=== PATIENT | female | born 1960 | race Caucasian/White ===

== ENCOUNTER → 2020-01-21 16:27 | Outpatient (CLI) | payer BC, SELFPAY ==
--- NOTE | 2020-01-21 16:28 | MM_ITS ---
PROCEDURE: MM DIG SCREENING MAMM BI W/CAD Digital Breast Tomosynthesis Included CLINICAL INDICATION: screening xmg There is a history of breast cancer in the patient's sister diagnosed after menopause COMPARISON: MG BR-ALINE SCRN ELOY from 01/22/2013 MG DMSB DIG MAMM-SCREEN ELOY W/CAD from 09/12/2016 MG MM scrn mammo channing BI from 12/05/2018 outside films TECHNIQUE: Standard CC and MLO images and 3D Tomosynthesis was obtained. R2 CAD reviewed. FINDINGS: Moderate diffuse fibroglandular densities are seen in both breast and the findings are bilateral and symmetrical. There is a benign-appearing microcalcification in each breast. There are no CAD markings. There is no suspicious lesion and no suspicious microcalcifications. IMPRESSION: Moderate breast density with no suspicious lesions seen BI-RAD Category: 2 Benign Finding(s) FOLLOW-UP: 1YR 1 Year Follow-up (A letter has been sent to the patient regarding results of the study.) Dictated by: Dr. Petey Curry MD 01/29/2020 09:35 Dr. Petey Curry MD in [place] 01/29/2020 09:35
== END ==
PROVIDERS: PCP Internal Medicine Adolescent Medicine; Visit Provider Nurse Practitioner Obstetrics & Gynecology
DX: Z12.31 Encounter for screening mammogram for malignant neoplasm of breast (principal)
CPT/HCPCS: 77063; 77067

== ENCOUNTER → 2020-08-04 13:54 | Outpatient (POV) | payer BC, SELFPAY | PROVIDERS: Visit Provider Dermatology | DX: Z00.00 Encounter for general adult medical examination without abnormal findings (principal) ==

== ENCOUNTER → 2021-02-12 10:01 | Outpatient (CLI) | payer BC, SELFPAY ==
[2021-02-12 10:34] LABS: Basophils # 0.1 K/mm3 (0-0.2); Basophils % 1.8 % (0.1-2.0); Eosinophils # 0.3 K/mm3 (0.0-0.4); Eosinophils % 4.4 % (0.1-12.0); Hematocrit 46.3 % (37.0-47.0); Hemoglobin 15.2 g/dL (12.2-16.2); Lymphocytes # 1.5 K/mm3 (0.7-4.5); Lymphocytes % 23.3 % (10-50); Mean Corpuscular HGB Conc 32.8 g/dL (31.8-35.4); Mean Corpuscular Hemoglobin 30.8 pg (27.0-31.2); Mean Corpuscular Volume 93.7 fl (81-99); Mean Platelet Volume 7.9 fl (7.4-10.4); Monocytes # 0.4 K/mm3 (0.1-1.0); Monocytes % 6.1 % (1.7-9.3); Neutrophils # 4.2 K/mm3 (1.8-7.8); Neutrophils % 64.3 % (37.0-80.0); Platelet Count 280 K/mm3 (142-424); Red Blood Count 4.95 M/mm3 (4.20-5.40); Red Cell Distribution Width 12.9 % (11.5-17.5); White Blood Count 6.5 K/mm3 (4.8-10.8)
[2021-02-12 12:15] LABS: Alanine Aminotransferase 31 U/L (12-78); Albumin Level 4.5 g/dl (3.5-5.0); Albumin/Globulin Ratio 1.7 (1.1-1.8); Alkaline Phosphatase 85 U/L (38-126); Anion Gap 11.1 mEq/L (5-15); Aspartate Amino Transferase 32 U/L (14-36); Bilirubin,Total 0.7 mg/dl (0.2-1.3); Blood Urea Nitrogen 13 mg/dl (7-17); Calcium 9.7 mg/dl (8.4-10.2); Carbon Dioxide 32 mmol/L (22.0-30.0); Chloride 100 mmol/L (98-107); Chol/HDL Ratio 2.1 (1-3.5); Cholesterol 194 mg/dl (140-200); Estimated Glomerular Filt Rate 85 ml/min (>60); GFR (African American) 103 ML/MIN (>60); Globulin 2.7 g/dL (1.3-3.2); Glucose 95 mg/dl (74-100); HDL Cholesterol 93 mg/dl (40-60); Potassium 4.1 mmoL/L (3.5-5.1); Sodium 139 mmol/L (136-145); Total Protein,Serum 7.2 g/dl (6.3-8.2); Triglycerides 71 mg/dl (30-150); VLDL Cholesterol 14 mg/dL (0-40)
[2021-02-12 12:16] LABS: Hemoglobin A1C 5.5 % (4.0-6.0)
[2021-02-12 12:26] LABS: Direct LDL Cholesterol 88.73 mg/dL (100-129)
[2021-02-12 12:34] LABS: 25-OH Vitamin D, Total 27.9 ng/mL (30-100)
[2021-02-12 12:46] LABS: Thyroid Stimulating Hormone 2.11 uIU/mL (0.465-4.68)
[2021-02-12 13:05] LABS: Vitamin B12 534 pg/mL (239-931)
== END ==
PROVIDERS: Visit Provider Nurse Practitioner Family
DX: Z00.00 Encounter for general adult medical examination without abnormal findings (principal); E03.9 Hypothyroidism, unspecified; Z86.32 Personal history of gestational diabetes; Z86.39 Personal history of other endocrine, nutritional and metabolic disease
CPT/HCPCS: 36415; 80053; 80061; 82306; 82607; 83036; 84443; 85025

== ENCOUNTER 2021-03-30 17:00 | Outpatient (RCR) | payer BC, SELFPAY | END 2021-03-30 17:05 | disposition home or self-care (01) | LOC: PT 17:00 | PROVIDERS: PCP Internal Medicine Adolescent Medicine; Visit Provider Orthopaedic Surgery Adult Reconstructive Orthopaedic Surgery | DX: M25.511 Pain in right shoulder (principal) | CPT/HCPCS: 20561; 97010; 97014; 97016; 97033; 97035; 97110; 97140; 97163; 97164; G0283 ==

== ENCOUNTER → 2021-04-13 17:06 | Outpatient (CLI) | payer BC, SELFPAY ==
--- NOTE | 2021-04-13 17:07 | MM_ITS ---
PROCEDURE INFORMATION: Exam: MG Bilateral Screening 3D Mammography Exam date and time: 04/13/2021 5:07 PM Age: 60 years old Clinical indication: Encounter for screening mammogram for malignant neoplasm of breast; Additional info: Screening xmg. Family history of breast carcinoma. TECHNIQUE: Imaging protocol: Bilateral Screening tomosynthesis and 2D mammography including computer-aided detection (CAD) when performed. COMPARISON: 1. MG MM DIG SCREENING MAMM BI W/CAD 01/21/2020 4:40 PM 2. MG MM scrn mammo channing BI 12/05/2018 5:34 PM FINDINGS: MAMMOGRAPHY: Breast composition: The breasts are heterogeneously dense, which may obscure small masses. Mass: No suspicious masses. Architectural distortion: No suspicious distortion. Calcifications: No suspicious calcifications. Asymmetric density: None. Skin thickening: None. Axillary adenopathy: None. IMPRESSION: No mammographic evidence of malignancy. Annual screening is recommended unless otherwise clinically indicated. ASSESSMENT: BI-RADS Category 1: Negative
== END ==
PROVIDERS: PCP Internal Medicine Adolescent Medicine; Visit Provider Nurse Practitioner Obstetrics & Gynecology
DX: Z12.31 Encounter for screening mammogram for malignant neoplasm of breast (principal)
CPT/HCPCS: 77063; 77067

== ENCOUNTER 2021-05-11 16:00 | Outpatient (RCR) | payer BC, SELFPAY | END 2021-05-11 16:05 | disposition home or self-care (01) | LOC: PT 16:00 | PROVIDERS: PCP Internal Medicine Adolescent Medicine | DX: M79.672 Pain in left foot (principal); R60.0 Localized edema; Z98.890 Other specified postprocedural states | CPT/HCPCS: 97010; 97014; 97033; 97035; 97110; 97112; 97140; 97163; G0283 ==

== ENCOUNTER → 2022-07-25 23:54 | Outpatient (CLI) | payer BC, SELFPAY ==
[2022-07-25 16:41] LABS: Basophils % 0.5 % (0.1-2.0); Eosinophils # 0.3 K/mm3 (0.0-0.4); Eosinophils % 3.1 % (0.1-12.0); Hematocrit 45.1 % (37.0-47.0); Hemoglobin 14.2 g/dL (12.2-16.2); Lymphocytes # 1.2 K/mm3 (0.7-4.5); Lymphocytes % 13.9 % (10-50); Mean Corpuscular HGB Conc 31.6 g/dL (31.8-35.4); Mean Corpuscular Hemoglobin 29.3 pg (27.0-31.2); Mean Corpuscular Volume 92.8 fl (81-99); Mean Platelet Volume 9.1 fl (7.4-10.4); Monocytes # 0.6 K/mm3 (0.1-1.0); Monocytes % 7.3 % (1.7-9.3); Neutrophils # 6.5 K/mm3 (1.8-7.8); Neutrophils % 75.2 % (37.0-80.0); Platelet Count 219 K/mm3 (142-424); Red Blood Count 4.85 M/mm3 (4.20-5.40); Red Cell Distribution Width 12.9 % (11.5-17.5); White Blood Count 8.6 K/mm3 (4.8-10.8)
[2022-07-25 16:44] LABS: Anion Gap 12.1 mEq/L (5-15); Blood Urea Nitrogen 15 mg/dl (7-17); Calcium 8.8 mg/dl (8.4-10.2); Carbon Dioxide 31 mmol/L (22.0-30.0); Chloride 102 mmol/L (98-107); Estimated Glomerular Filt Rate 85 ml/min (>60); GFR (African American) 103 ML/MIN (>60); Glucose 96 mg/dl (74-100); Potassium 4.1 mmoL/L (3.5-5.1); Sodium 141 mmol/L (136-145)
[2022-07-25 17:15] LABS: Thyroid Stimulating Hormone 0.06 uIU/mL (0.465-4.68)
== END ==
PROVIDERS: PCP Family Medicine; Visit Provider Family Medicine
DX: Z00.00 Encounter for general adult medical examination without abnormal findings (principal); E03.9 Hypothyroidism, unspecified
CPT/HCPCS: 80048; 84443; 85025

== ENCOUNTER → 2022-08-31 08:20 | Outpatient (CLI) | payer BC, SELFPAY ==
--- NOTE | 2022-08-31 08:20 | XR_ITS ---
FINAL REPORT TECHNIQUE: Bone densitometry calculations of the lumbar spine and left hip were obtained. CLINICAL HISTORY: osteopenia FINDINGS: Using L1-4, the bone mineral density of the spine is 0.732 g/cm2, corresponding to T-score of -2.9 and a Z score of -1.3. This is within the range of osteoporosis. Using the left hip, the bone mineral density of the femoral neck is 0.585 g/cm2, corresponding to a T-score of -2.4 and a Z-score of -1.0. This is within the range of osteopenia. NOTE: T-score: Standard deviation compared with peak bone mass of young adult mean. *Following the recommendations of the International Society of Bone densitometry, classification of hip BMD is based on the lower of two T-scores; total hip or femoral neck. IMPRESSION: 1. Bone mineral density of the lumbar spine within the range of osteoporosis. 2. Bone mineral density of the left femoral neck within the range of osteopenia. FRAX data reports 11% major osteoporotic fracture and 1.9% hip fracture. Reviewed, Interpreted and Dictated by Edith Jewell MD Transcribed by Julia Gregg Authenticated and [facility]
--- NOTE | 2022-08-31 08:20 | MM_ITS ---
PROCEDURE INFORMATION: Exam: MG Bilateral Screening 3D Mammography Exam date and time: 08/31/2022 8:33 AM Age: 61 years old Clinical indication: Screening. Her sister had breast cancer at age 65. TECHNIQUE: Imaging protocol: Bilateral Screening tomosynthesis and 2D mammography including computer-aided detection (CAD) when performed. COMPARISON: 1. MG MM DIG SCREENING MAMM BI W/CAD 04/13/2021 5:04 PM 2. MG MM DIG SCREENING MAMM BI W/CAD 01/21/2020 4:40 PM 3. MG MM scrn mammo channing BI 12/05/2018 5:34 PM 4. MG DMSB DIG MAMM-SCREEN ELOY W/CAD 09/12/2016 5:11 PM FINDINGS: MAMMOGRAPHY: Breast composition: The breasts are heterogeneously dense, which may obscure small masses. Mass: No suspicious mass. Architectural distortion: None. Calcifications: No suspicious calcifications. Asymmetric density: None. Skin thickening: None. Axillary adenopathy: None. IMPRESSION: No mammographic evidence of malignancy. Annual screening is recommended unless otherwise clinically indicated. ASSESSMENT: BI-RADS Category 1: Negative
== END ==
PROVIDERS: PCP Family Medicine; Visit Provider Family Medicine
DX: Z12.31 Encounter for screening mammogram for malignant neoplasm of breast (principal); Z13.820 Encounter for screening for osteoporosis; Z78.0 Asymptomatic menopausal state
CPT/HCPCS: 77063; 77067; 77080

== ENCOUNTER 2023-08-21 16:43 | Outpatient (CLI) | payer BC, SELFPAY ==
[2023-08-21 17:14] LABS: Basophils # 0.1 K/mm3 (0-0.2); Basophils % 0.8 % (0.1-2.0); Eosinophils # 0.2 K/mm3 (0.0-0.4); Eosinophils % 2.8 % (0.1-12.0); Hematocrit 43.6 % (37.0-47.0); Hemoglobin 14.5 g/dL (12.2-16.2); Lymphocytes # 1.6 K/mm3 (0.7-4.5); Lymphocytes % 26.6 % (10-50); Mean Corpuscular HGB Conc 33.3 g/dL (31.8-35.4); Mean Corpuscular Hemoglobin 31.7 pg (27.0-31.2); Mean Corpuscular Volume 95.4 fl (81-99); Mean Platelet Volume 9.5 fl (7.4-10.4); Monocytes # 0.4 K/mm3 (0.1-1.0); Monocytes % 7.2 % (1.7-9.3); Neutrophils # 3.9 K/mm3 (1.8-7.8); Neutrophils % 62.6 % (37.0-80.0); Platelet Count 226 K/mm3 (142-424); Red Blood Count 4.57 M/mm3 (4.20-5.40); Red Cell Distribution Width 13.9 % (11.5-17.5); White Blood Count 6.1 K/mm3 (4.8-10.8)
[2023-08-21 17:47] LABS: Alanine Aminotransferase 18 U/L (12-78); Albumin Level 4.4 g/dl (3.5-5.0); Albumin/Globulin Ratio 1.8 (1.1-1.8); Alkaline Phosphatase 81 U/L (38-126); Anion Gap 7.7 mEq/L (5-15); Aspartate Amino Transferase 23 U/L (14-36); Bilirubin,Total 0.7 mg/dl (0.2-1.3); Blood Urea Nitrogen 17 mg/dl (7-17); Calcium 9.5 mg/dl (8.4-10.2); Carbon Dioxide 30 mmol/L (22.0-30.0); Chloride 107 mmol/L (98-107); Cholesterol 154 mg/dl (140-200); Estimated Glomerular Filt Rate 85 ml/min (>60); GFR (African American) 103 ML/MIN (>60); Globulin 2.5 g/dL (1.3-3.2); Glucose 83 mg/dl (74-100); HDL Cholesterol 77 mg/dl (40-60); Potassium 4.7 mmoL/L (3.5-5.1); Sodium 140 mmol/L (136-145); Total Protein,Serum 6.9 g/dl (6.3-8.2); Triglycerides 54 mg/dl (30-150); VLDL Cholesterol 11 mg/dL (0-40)
[2023-08-21 17:58] LABS: Direct LDL Cholesterol 58.07 mg/dL (100-129)
[2023-08-21 18:17] LABS: Thyroid Stimulating Hormone 3.94 uIU/mL (0.465-4.68)
[2023-08-21 18:40] LABS: Hemoglobin A1C 6.7 % (4.0-6.0)
== END 2023-08-21 23:59 | disposition home or self-care (01) ==
LOC: LAB.DROPOF 16:43
PROVIDERS: PCP Family Medicine; Visit Provider Family Medicine
DX: E03.9 Hypothyroidism, unspecified (principal)
CPT/HCPCS: 80050; 80053; 80061; 83036; 84443; 85025

== ENCOUNTER 2023-09-08 10:03 | Outpatient (CLI) | payer BC, SELFPAY ==
--- NOTE | 2023-09-08 10:08 | MM_ITS ---
PROCEDURE INFORMATION: Exam: MG Bilateral Screening 3D Mammography Exam date and time: 09/08/2023 9:54 AM Age: 62 years old Clinical indication: Screening examination TECHNIQUE: Imaging protocol: Bilateral Screening tomosynthesis and 2D mammography including computer-aided detection (CAD) when performed. COMPARISON: 1. MG MM DIG SCREENING MAMM BI W/CAD 08/31/2022 8:33 AM 2. MG MM DIG SCREENING MAMM BI W/CAD 04/13/2021 5:04 PM FINDINGS: MAMMOGRAPHY: Breast composition: The breasts are heterogeneously dense, which may obscure small masses. Mass: None. Architectural distortion: None. Calcifications: No suspicious calcifications. Asymmetric density: None. Skin thickening: None. Axillary adenopathy: None. IMPRESSION: No mammographic evidence of malignancy. Annual screening is recommended unless otherwise clinically indicated. ASSESSMENT: BI-RADS Category 1: Negative
== END 2023-09-08 23:59 | disposition home or self-care (01) ==
LOC: RAD 10:04
PROVIDERS: PCP Family Medicine; Visit Provider Obstetrics & Gynecology
DX: Z12.31 Encounter for screening mammogram for malignant neoplasm of breast (principal)
CPT/HCPCS: 77063; 77067

== ENCOUNTER 2023-12-19 11:15 | Outpatient (CLI) | payer BC, SELFPAY | END 2023-12-19 23:59 | disposition home or self-care (01) | LOC: LAB.DROPOF 12-20 10:19 | PROVIDERS: PCP Family Medicine; Visit Provider Family Medicine | DX: R35.0 Frequency of micturition (principal) | CPT/HCPCS: 87086 ==

== ENCOUNTER 2024-09-02 10:00 | Outpatient (CLI) | payer BC, SELFPAY ==
[2024-09-02 18:02] LABS: Thyroid Stimulating Hormone 2.32 uIU/mL (0.465-4.68)
[2024-09-02 18:21] LABS: Hepatitis C Ab Qual. W/ RFX NEGATIVE (Negative)
--- OUTSIDE RECORDS SUMMARY | 2024-09-03 12:29 | XMS_ITS ---
Author Organization Unknown Medications Medication Instructions Effective Dates (start - stop) Status chlorhexidine gluconate 1.2 MG/ML Mouthwash 5156-21-87N78:00:00.000+00:0 0 - Completed levothyroxine sodium 0.112 M G Oral Tablet [Euthyrox] 4099-66-73W40:00:00.000+00:0 0 - Completed levothyroxine sodium 0.112 M G Oral Tablet 9072-21-88U96:00:00.000+00:0 0 - Completed levothyroxine sodium 0.112 M G Oral Tablet 6627-09-45N80:00:00.000+00:0 0 - Completed levothyroxine sodium 0.112 M G Oral Tablet 4817-95-29E89:00:00.000+00:0 0 - Completed Patient Care team information Name Category Status Period Participants - - Proposed period not known -
--- OUTSIDE RECORDS SUMMARY | 2024-09-03 12:29 | XMS_ITS | Data Portability ---
Author Organization [place] [facility] [place] [facility] mary Robinson, Z_HC_[facility] Address [address] [place] [address] Assessment No assessment recorded. Plan of Treatment Reminders Order Date Submit Date Provider Last Modified By Organization Details Last Modified Time Details Appointments None record ed. Lab None record ed. Referral None record ed. Procedures None record ed. Surgeries None record ed. Imaging None record ed. Medication Orders None record ed. Patient TargetsNo targets recorded. Patient InstructionsNo instructions recorded. Reason for Referral None Reported. Results Created Date Observation Date Name Description Value Unit Range Abnormal Flag Note LastModifiedBy Organization Detail LastModifiedTime 02/08/20 13 01/22/2013 alysoni ng/valerie calabrese tic resul t No observ ation record ed. [email or web address] [facility] (Imaging) [address], [place], [address], 05/07/2015 10:24:01 Result Notes None recorded. Problems Name Problem SNOMED Code Status Onset Date Resolution Date Notes Provider Name and Address Organization Details Recorded Time Onychomycosis due to dermatophyte 419316181 Active Not Available [facility] 3 03:01:51 Skin sensation disturbance 65482607 Active Not Available [facility] 3 03:01:51 Hypothyroidis m 91917154 Active Not Available [facility] 3 03:01:51 Problem Notes None recorded. Medical Equipment None Reported. Vitals None Recorded Social History None recorded. Functional Status None recorded. Mental Status None recorded. Family History Nothing Reported. Medical History No medical history recorded. Gynecological HistoryNo gynecological history recorded. Obstetrics History GPAL:G 0 P 0 0 0 0 Past Encounters Encounter ID Performer Location Encounter Start Date Encounter Closed Date Diagnosis/Indication Diagnosis SNOMED-CT Code Diagnosis ICD10 Code Diagnosis Note [id number] MD Bridger Jeronimo__[facility] [address] [place] [address] 11/24/2009 16:12:38 11/24/2009 16:29:18 [id number] Brianda Das DPM [facility] [address] [place] [address] [address] [place] [address] 11/25/2009 13:06:23 11/25/2009 15:28:49 [id number] Jesusita Shi MD Z_[place] [address] [place] [address] 12/14/2009 10:09:48 12/14/2009 13:29:16 [id number] MD MELANIE Moore ON [facility] [address] [place] [address] 01/22/2013 13:02:10 01/22/2013 13:37:45 [id number] Polo Crane DO [facility] [address] [facility] [address] [place] [address] 08/05/2014 11:18:22 08/07/2014 09:38:50 [id number] MD MELANIE Moore ON [facility] [address] [place] [address] 09/10/2018 15:37:36 09/10/2018 15:41:55 [id number] [facility] [address] [place] [address] [place] [address] 04/16/2019 15:13:38 04/23/2019 16:17:13 [id number] [facility]H [facility] [address] [place] [address] [place] [address] 04/30/2019 09:04:45 05/01/2019 09:57:29 [id number] [facility] [address] [place] [address] 05/21/2019 08:56:41 05/28/2019 16:40:26 [id number] Katarzyna Alba APRN [facility] [facility] [address] [place] [address] 04/30/2020 15:45:21 05/04/2020 10:09:39 Health Concerns Section Related Observation LastModified by Organization Detai ls LastModified Time None Recorded Concern Status LastModified by Organization Details LastModified Time None Recorded Advance Directives Directive None Recorded Payers Insurance Date Sequence Insurance Name Policy Number Policy Jolly Covered Member ID Jolly Member ID Guarantor Name 08/04/2014 1 [employer] (PPO) [id number] Soto Bernard [id number] Flora Bernard 04/30/[address] [facility] [employer] [id number] Kat Bernard 04/30/2020 1 [place] [id number] Soto Bernard [id number] Fl[place] Bernard OBGyn Episode No OBEpisode recorded.
--- OUTSIDE RECORDS SUMMARY | 2024-09-03 12:29 | XMS_ITS | Data Portability ---
Author Organization [facility] [place] [facility] [employer] [facility], [facility] Address [address] [place] [address] Assessment Encounter Date Assessment Date Assessment LastModified by Organization Details LastModified Time 04/30/2020 04/30/2020 The patient gave verbal consent using TeleHealth services and the consent is documented in the medical record prior to using the service. The patient has been informed of what a TeleMedicine visit is. Patient is located at home. Provider is located at office. Names and roles of persons in addition to the patient and provider participating in telemedicine services include none. The patient had a 17 minute TeleMedicine consultation via [employer] to discuss the following: felix [email or web address] Not available 05/01/2020 13:09:32 Plan of Treatment Reminders Order Date Submit Date Provider Last Modified By Organization Details Last Modified Time Details Appointments None recorded. Lab None recorded. Referral None recorded. Procedures None recorded. Surgeries None recorded. Imaging MRI, knee - 15159 2014 015 [facility] (Registration ), [address], [place], [address], 13:40:10 Medication Orders levothyroxi ne 112 mcg tablet 2020 021 [facility] 591, [address], [place], [address], 16:12:15 Patient TargetsNo targets recorded. Patient Instructions Encounter Date Encounter Id Patient Instructions Last Modified By Organization Details Last Modified Time 08/05/2014 [id number] knee pain or injury: care instructions [email or web address] Not available 08/05/2014 12:07:29 04/30/2020 [id number] hypothyroidism: care instructions [email or web address] Not available 04/30/2020 16:12:06 Reason for Referral None Reported. Results Created Date Observation Date Name Description Value Unit Range Abnormal Flag Note LastModifiedBy Organization Detail LastModifiedTime 08/14/19 15 08/12/2014 MRI, knee No observ ation record ed. [email or web address] [facility] (Imaging) [address] , [place], [address], 08/20/2014 14:46:57 08/14/19 15 08/12/2014 MRI lower ext joint wo [facility] [address] [facility] [place] [address] IMAGIN G REPORT Name: FLORA HENRIQUEZ Room #: : 1960 Accoun t #: [id number] Bed #: Age: 53 Y Patien t Type: RAD Order Date/T jonel: 2014 14:25 Sex: F Order# : Access ion#: Exam Descri ption: Admitt ing Diagno sis: [id number] MRI/LO W EXT ANY JOIN Dictat ed By: JAY ASTORGA ng Physic shannon: PAMELA DE LA PAZ Attend ing Physic shannon: PAMELA DE LA PAZ y Care Physic shannon: JACINTA ARTEAGA, COOK FINAL REPORT MRI OF THE LEFT KNEE CRITER IA: Left knee pain. TECHNI QUE: Multip lanar, multi- echo MR images of the left knee were obtain ed on August 12, 2014. FINDIN GS: The visual ized osseou s struct ures are intact and the marrow signal is homoge neous. The ACL, PCL, MCL, and LCL are intact . The medial and latera l menisc i are identi fied and appear intact . There is no eviden ce of poplit eal cyst. No joint effusi on is identi fied. IMPRES JAZZY: No eviden ce of ligame ntous or menisc al tear. This job has been electr onical ly signed by: Jay Astorga DO on 2014 at 1:15:0 0 PM (EST) Veri cation : [id number] Print CC: Fax CC: DO Ping Kruger Date / Time: 2014 04:47 PM ET T Date / Time: 2014 06:11 PM ET Page 1 of 2 IMAGIN G REPORT Name: FLORA HENRIQUEZ Order Date/T jonel: 2014 14:25 : 1960 Accoun t#: [id number] Order# : Access ion#: Exam Descri ption: Admitt ing Diagno sis: [id number] MRI/LO W EXT ANY JOIN R Date / Time: S Job #: [id number] MT: [id number] D: CB Page 2 of 2 [facility] (Registration ) [address], [place], [address], 01/21/2015 04:07:07 08/21/19 15 08/12/2014 imagi ng/di agnos tic resul t No observ ation record ed. BARCODE Not Available 2014 14:58:54 Result Notes None recorded. Problems Name Problem SNOMED Code Status Onset Date Resolution Date Notes Provider Name and Address Organization Details Recorded Time Knee pain Active Polo De La Paz DO [address], [place], [address] , [facility] Robinson 08/05/2014 12:02:40 Problem Notes None recorded. Procedures Surgical History Date Name Laterality Status Provider Name and Address Organization Details Recorded Time Tonsillectomy completed Tracey Esquivel RN [facility] 08/05/2014 11:47:51 Imaging Results None recorded. Procedure Notes None recorded. Medical Equipment None Reported. Allergies No known drug allergies Medications Name Sig Start Date Stop Date Status Note LastModified by Organization Details LastModified Time amoxicillin 500 mg capsule 04/30 completed Not Available Not Available Not Available cephalexin 500 mg capsule 04/30 completed Not Available Not Available Not Available levothyroxin e 125 mcg tablet active Not Available Not Available Not Available Vitamin D2 1,250 mcg (50,000 unit) capsule 04/30 completed Not Available Not Available Not Available levothyroxin e 112 mcg tablet Take 1 tablet by mouth once daily active Not Available Not Available No t Available nitrofuranto in monohydrate/ macrocrystal s 100 mg capsule TAKE 1 CAPSULE BY MOUTH EVERY 12 HOURS FOR 7 DAYS 04/30 completed Not Available Not Available Not Available Vitals Date Recorded Body height Body mass index (BMI) Heart rate Body temperature Respiratory rate Body weight Oxygen saturation Oxygen saturation in Arterial blood by Pulse oximetry Systolic And Diastolic Provider Name and Address Organization Details Last Updated DateTime 5 172.72 cm 26.2 kg/m2 97.4 /min 97.8 [degF] 16 /min 35317.8 8764 g 99 % 99 % 118/73 mm[Hg] Tracey Esquivel RN [facility] 5 11:48:17 Social History Question Answer Notes LastModified by Organizat ion Details LastModified Time Tobacco Smoking Status Never Smoker Tracey Esquivel RN null, [facility] 08/05/2014 11:47:51 How Much Tobacco Do You Chew? None Information not available 08/05/2014 In The 14 Days Before Symptom Onset, Have You Had Close Contact With A Person Who Is Under Investigation For COVID-19 While That Person Was Ill? No Information not available 04/30/2020 Have You Been To An Area Known To Be High Risk For COVID-19? No Information not available 04/30/2020 Have You Directly Handled Bats, Rodents, Or Primates From Ebola Endemic Areas? No Information not available 08/05/2014 Have You Had Contact With Blood, Bodily Fluids, Or Human Remains Of A Patient Known To Have Or Suspected To Have Ebola Virus Disease? No Information not available 08/05/2014 Do You Reside In Or Have You Traveled To An Area Where Ebola Virus Transmission Is Active? No Information not available 08/05/2014 Marital Status Informatio n not available 08/05/2014 Sex: Unknown Functional Status Question Answer Note LastModified by Organization D etails LastModified Time What is your level of alcohol consumption? None Information not available 08/05/2014 Mental Status None recorded. Family History Relationship Description Onset Age of this Age Resolved Age Notes LastModified by Organization Details LastModified Time Mother Rheumatoid arthritis [email or web address] Not available 2014 11:56:40 Father Malignant tumor of body of pancreas [email or web address] Not available 2014 11:56:40 Medical History Condition Response THYROID DISEASE Y Gynecological HistoryNo gynecological history recorded. Obstetrics History GPAL:G 0 P 0 0 0 0 Past Encounters Encounter ID Performer Location Encounter Start Date Encounter Closed Date Diagnosis/Indication Diagnosis SNOMED-CT Code Diagnosis ICD10 Code Diagnosis Note [id number] Jesusita Shi MD [facility] [address] [place] [address] 11/24/2009 16:12:38 11/24/2009 16:29:18 [id number] Brianda Das DPM Z_[facility] [address] [place] [address] 11/25/2009 13:06:23 11/25/2009 15:28:49 [id number] Jesusita Shi MD Z_HC_[facility] [address] [place] [address] 12/14/2009 10:09:48 12/14/2009 13:29:16 [id number] MD MELANIE Moore ON [facility] [address] [facility] [place] [address] 01/22/2013 13:02:10 01/22/2013 13:37:45 [id number] Polo De La Paz DO JR_[facility] [address] [facility] [address] [place] [address] 08/05/2014 11:18:22 08/07/2014 09:38:50 Knee pain 37230656 continue OTC ibuprofen as needed until MRI results. Suspect soft/conne ctive tissue injury. [id number] MD MELANIE Moore ON [address] [address] 09/10/2018 15:37:36 09/10/2018 15:41:55 [id number] GRACE DAVID ON [address] [place] [address] 04/16/2019 15:13:38 04/23/2019 16:17:13 [id number] [facility] [address] [place] [address] [place] [address] 04/30/2019 09:04:45 05/01/2019 09:57:29 [id number] GRACE DAVID ON [address] [place] [address] 05/21/2019 08:56:41 05/28/2019 16:40:26 [id number] GRACE Zee_[facility] [address] [facility] [place] [address] 04/30/2020 15:45:21 05/04/2020 10:09:39 Hypothyroidism 94911779 E03.9 Health Concerns Section Related Observation LastModified by Organization Detai ls LastModified Time None Recorded Concern Status LastModified by Organization Details LastModified Time None Recorded Advance Directives Directive None Recorded Payers Insurance Date Sequence Insurance Name Policy Number Policy Jolly Covered Member ID Jolly Member ID Guarantor Name 08/04/2014 1 [employer] (PPO) [id number] Soto Bernard [id number] Flora Bernard 04/30/2020 [employer] [place] [employer] [id number] Kat Marco Antonio Bernard 04/30/2020 1 [place] [id number] Soto Bernard [id number] Flora Bernard Notes Date Note Type Note Provider Name and Address Organization Details Recorded Time 5 text/html Patient here complains of left knee pain. States continuous but worsened with ambulation. States had fall several months ago at work when getting her feet tangled in speaker wire. States fell with entire weight coming down on knee. States aching pain that also hurts at night when extending knee as well. States feels a throbbing in her knee at times but knee aches continuously. Worsened with exertion. No erythema or edema. No instablility. Polo De La Paz DO [address], [place], [address], [facility] 08/06/2014 22:48:58 1 text/html HypothyroidismReported bypatient.Quality:not changing Context/Risk:normal thyroid levels Exercisegets exercise Associated Symptoms:no cold intolerance; no heat intolerance; no weight loss; no weight gain Katarzyna Alba, GRACE [address], [place], [address], [facility] 05/01/2020 13:09:46 OBGyn Episode No OBEpisode recorded.
--- OUTSIDE RECORDS SUMMARY | 2024-09-03 12:29 | XMS_ITS | Data Portability ---
Author Organization [facility] Enedina yishannon Bridger Bowers_[facility] Address [address] [place] [address] [address] Assessment No assessment recorded. Plan of Treatment [...] instructions recorded. Reason for Referral None Reported. Problems Name Problem SNOMED Code Status Onset Date Resolution Date Notes Provider Name and Address Organization Details Recorded Time Mononeuritis of lower limb Active Not Available [facility] 3 03:01:44 Problem Notes None recorded. Medical Equipment None [...] SNOMED-CT Code Diagnosis ICD10 Code Diagnosis Note [id number] Jesusita Shi MD Z__[facility] 72[facility] [address] [place] [address] 11/24/2009 16:12:38 11/24/2009 16:29:18 [id number] Brianda Das DPM Z_[facility] [address] [place] [address] 11/25/2009 13:06:23 11/25/2009 15:28:49 [id number] Jesusita Shi MD Z_[facility] [address] [place] [address] 12/14/2009 10:09:48 12/14/2009 13:29:16 [id number] MD MELANIE Moore ON [facility] 424 [facility] [place] [address] 01/22/2013 13:02:10 01/22/2013 13:37:45 [id number] Polo Crane DO [facility] 1027 [facility] [address] [place] [address] 08/05/2014 11:18:22 08/07/2014 09:38:50 [id number] [facility] [address] [place] [address] 09/10/2018 15:37:36 09/10/2018 15:41:55 [id number] GRACE DAVID [facility] 424 [facility] [place] [address] 04/16/2019 15:13:38 04/23/2019 16:17:13 [id number] SURESH Gee ON MEDICAL CLINIC 424 [facility] [place] [address] 04/30/2019 09:04:45 05/01/2019 09:57:29 [id number] GR[facility]ID [facility] 424 [facility] [place] [address] 05/21/2019 08:56:41 05/28/2019 16:40:26 [id number] Katarzyna Alba APRN [facility] [address] [place] [address] 04/30/2020 15:45:21 05/04/2020 10:09:39 Health Concerns Section Related Observation LastModified by Organization Detai ls LastModified Time None Recorded Concern Status LastModified by Organization Details LastModified Time None Recorded Advance Directives Directive None Recorded Payers Insurance Date Sequence Insurance Name Policy Number Policy Jolly Covered Member ID Jolly Member ID Guarantor Name 08/04/2014 1 [employer] (PPO) [id number] [place]oto Bernard [id number] Flora Bernard 04/30/2020 [facility] [employer] [place] [id number] Kat Bernard 04/30/2020 1 [place] [id number] Soto Bernard [id number] [place] OBGyn Episode No OBEpisode recorded.
--- OUTSIDE RECORDS SUMMARY | 2024-09-03 12:30 | XMS_ITS | Data Portability ---
Author Organization [place] [facility], [facility] Address [address] [place] [address] [address] Care Team Providers Care Hotel Dining Room Cashier Name Role Phone ISIDRA THORPE Primary Care Provider Assessment Encounter Date Assessment Date Assessment LastModified by Organization Details LastModified Time 05/21/2019 05/21/2019 The patient gave verbal consent using TeleHealth services and the consent is documented in the medical record prior to using the service. The patient has been informed of what a TeleMedicine visit is. Patient is located at home. Provider is located at office. Names and roles of persons in addition to the patient and provider participating in telemedicine services include Priti Grimaldo, MICHAEL ; Raffi Horton RN & Isidra Thorpe APRN. The patient had a 38 minute TeleMedicine consultation via Facebook Messenger video chat to discuss the following: zander Not available 05/21/2019 09:53:39 Plan of Treatment Reminders Order Date Submit Date Provider Last Modified By Organization Details Last Modified Time Details Appointments None record ed. Lab CBC w/ auto diff [email or web address] [place] [address] Ctr (Registration ), [address] [place], [address], 0 12:43:06 CMP, serum or plasma 2019 020 [facility] Ctr (Registration ), [address] [place], [address], 0 12:43:06 HbA1c (hemog lobin A1c), blood [address] Ctr (Registration ), [address] [place], [address], 0 12:43:06 lipid panel, serum [address] Ctr (Registration ), [address] [place], [address], 0 12:43:06 TSH, serum or plasma [address] Ctr (Registration ), [address] [place], [address], 0 12:43:06 vitami n B12, serum [address] Ctr (Registration ), [address] [place], [address], 0 12:43:06 vitami n D, 25-hyd alon, total, serum [address] Ctr (Registration ), [address] [place], [address], 0 12:43:06 Referral None record ed. Procedures None record ed. Surgeries None record ed. Imaging None record ed. Medication Orders Macrob id 100 mg capsul e 2019 020 fina parry [facility] [address], [address] [place] [address] y [address] [place], [address], 0 13:35:40 Macrob id 100 mg capsul e 2019 020 INTERFACE [facility], [address] [place] / [address] [place], [address], 0 09:37:14 Synthr oid 112 mcg tablet 2019 020 rholbrookwatki ns [facility], [address], [address], 0 16:00:05 Patient TargetsNo targets recorded. Patient Instructions Encounter Date Encounter Id Patient Instructions Last Modified By Organization Details Last Modified Time 04/16/2019 [id number] hypothyroidism: care instructions [email or web address] Not available 04/17/2019 16:00:05 04/30/2019 [id number] hypothyroidism: care instructions [email or web address] Not available 04/30/2019 12:42:35 05/21/2019 [id number] painful urination (dysuria): care instructions [email or web address] Not available 05/21/2019 13:35:40 frequent urination: care instructions [email or web address] Not available 05/21/2019 09:37:04 learning about breast cancer screening rholbrookwatkins Not available 05/21/2019 13:35:40 advance care planning: care instructions [email or web address] Not available 05/21/2019 13:35:40 advance directives: care instructions [email or web address] Not available 05/21/2019 13:35:40 Reason for Referral None Reported. Results Created Date Observation Date Name Description Value Unit Range Abnormal Flag Note LastModifiedBy Organization Detail LastModifiedTime 08/09/19 20 08/09/2019 [facility] [address] [place] [address] Phone: Patien t Name: FLORA HENRIQUEZ Physic shannon: ANA ORTEGA REBECC A Attend ing Physic shannon: ANA ORTEGA REBECC A Referr ing Physic shannon: ANA ORTEGA REBECC A Admiss ion Date: Date of Servic e: : [id number] Order Number : [id number] Patien t Type: RAD Patien t Number : [id number] Reason : post menopa usal DEXA scan 020: CLINIC AL INDICA TIONS: Osteop orosis screen ing in 58-yea r-old postme nopaus al female . COMPAR ISONS: None availa ble. TECHNI QUE: Bone minera l densit y was measur ed in the lumbar spine and the LEFT hip using a dual-e christygy laurita WHEELER GS: Bone minera l densit y measur es 0.858 g/sq cm overal l in the L1-L4 verteb paulino for a T score of -2.7 in that area. Bone minera l densit y measur es 0.782 g/sq cm in the LEFT femora l neck and 0.783 g/sq cm overal l in the LEFT hip for T-scor es of -1.8 in both areas. IMPRES JAZZY: Overal l, measur ements above are most compat ible with World Health Organi zation classi ficati on for osteop orosis and a high risk for fractu re. Electr onical ly Signed By: Ari Reyes Electr onical ly signed by: Ari Reyes on 020 at 09:27: 01 Richie varghese Name: FLORA HENRIQUEZ, End of Report [address] Ctr (Registration ) [address] [place], [address], 08/09/2019 11:27:13 08/14/19 20 DEXA No observ ation record ed. [address] Ctr (Registration ) [address] [place], [address], 08/15/2019 08:02:11 Result Notes Documentation Provider Name and Address Organization Details Recorded Time Dexa : [facility] [address] [place] [address] Patient Name: FLORA BERNARD Requesting Physician: JOSE HARVEY Attending Physician: JOSE HARVEY Referring Physician: JOSE HARVEY Admission Date: Date of Service: : [id number] Order Number: [id number] Patient Type: RAD Patient Number: [id number] Reason: post menopausal DEXA scan 08/08/2019: CLINICAL INDICATIONS: Osteoporosis screening in 58-year-old postmenopausal female. COMPARISONS: None available. TECHNIQUE: Bone mineral density was measured in the lumbar spine and the LEFT hip using a dual-energy scanner. FINDINGS: Bone mineral density measures 0.858 g/sq cm overall in the L1-L4 vertebrae for a T score of -2.7 in that area. Bone mineral density measures 0.782 g/sq cm in the LEFT femoral neck and 0.783 g/sq cm overall in the LEFT hip for T-scores of -1.8 in both areas. IMPRESSION: Overall, measurements above are most compatible with World Health Organization classification for osteoporosis and a high risk for fracture. Patient Name: FLORA BERNARD, End of Report Priti Grimaldo RN [facility], [facility] 08/09/2019 11:27:13 Problems No Known Problems Procedures Surgical History Date Name Laterality Status Provider Name and Address Organization Details Recorded Time 05/21/19 20 Advanced Care Planning completed Raffi Horton RN [facility] 05/21/2019 09:43:51 09/11/19 19 Date of Last Pap Smear completed Raffi Horton RN [facility] 05/21/2019 09:39:49 Tonsillectomy completed Xi Burgos LPN [facility] 04/16/2019 15:30:56 Imaging Results None recorded. Procedure Notes None recorded. Medical Equipment None Reported. Allergies No known drug allergies Medications Name Sig Start Date Stop Date Status Note LastModified by Organization Details LastModified Time Fosamax 70 mg tablet Take 1 tablet every week by oral route for 30 days. 2019 active Not Available Not Available Not Avai lable cephalexin 500 mg capsule 04/15 completed Not Available Not Available Not Available Vitamin D2 1,250 mcg (50,000 unit) capsule 05/20 completed Not Available Not Available Not Available levothyroxin e 112 mcg tablet TAKE 1 TABLET BY MOUTH ONCE DAILY active Not Available Not Available No t Available nitrofuranto in monohydrate/ macrocrystal s 100 mg capsule TAKE 1 CAPSULE BY MOUTH EVERY 12 HOURS FOR 7 DAYS active Not Available Not Available No t Available Vitals Date Recorded Body height Body mass index (BMI) Body weight Body temperature Heart rate Respiratory rate Oxygen saturation Oxygen saturation in Arterial blood by Pulse oximetry Systolic And Diastolic Provider Name and Address Organization Details Last Updated DateTime 0 170.18 cm 26.7 kg/m2 43429.5 g 98.9 [degF] 67 /min 16 /min 98 % 98 % 122/75 mm[Hg] Xi Burgos LPN [facility] 0 15:29:32 Date Recorded Body height Provider Name an d Address Organization Details Last Updated DateTime 05/21/2019 170.18 cm Priti Grimaldo RN [facility] 05/21/2019 08:59:38 Social History Question Answer Notes LastModified by Organizat ion Details LastModified Time Tobacco Smoking Status Never Smoker Xi Burgos LPN null, [facility] 04/16/2019 15:30:46 Do You Have An Advance Directive? Yes Pt Has Living Will But Does Nto Have On File Information not available 05/21/2019 What Is Your Level Of Caffeine Consumption? Moderate Coffee Daily Information not available 05/21/2019 How Much Tobacco Do You Chew? None Information not available 05/21/2019 In The 14 Days Before Symptom Onset, Have You Had Close Contact With A Laboratory-confir med COVID-19 While That Case Was Ill? No Information not available 05/21/2019 If Patient Spent Time In [facility] - Does The Patient Live In [facility]? No Information not available 05/21/2019 In The 14 Days Before Symptom Onset, Have You Had Close Contact With A Person Who Is Under Investigation For COVID-19 While That Person Was Ill? No Information not available 05/21/2019 In The 14 Days Before Symptom Onset, Did The Patient Spend Time In [facility]? No Information not available 05/21/2019 Have You Been To An Area Known To Be High Risk For COVID-19? No Information not available 05/21/2019 What Type Of Diet Are You Following? REGULAR Information not available 05/21/2019 Which Illicit Or Recreational Drugs Have You Used? Denies Information not available 05/21/2019 Have You Directly Handled Bats, Rodents, Or Primates From Ebola Endemic Areas? No Information not available 05/21/2019 Have You Had Contact With Blood, Bodily Fluids, Or Human Remains Of A Patient Known To Have Or Suspected To Have Ebola Virus Disease? No Information not available 05/21/2019 Do You Reside In Or Have You Traveled To An Area Where Ebola Virus Transmission Is Active? No Information not available 05/21/2019 Education Post Graduate Information not available 05/21/2019 Are There Any Guns Present In Your Home? No Information not available 05/21/2019 Marital Status Informatio n not available 05/21/2019 What Was The Date Of Your Most Recent Tobacco Screening? 05/21/2019 Information not available 05/21/2019 Seat Belts Used Routinely Yes Information not available 05/21/2019 Smoke Alarm In Home Yes Information not available 05/21/2019 How Much Tobacco Do You Smoke? No Information not available 05/21/2019 General Stress Level Low Information not available 05/21/2019 Do You Use Sunscreen Routinely? Yes Information not available 05/21/2019 How Many Years Have You Smoked Tobacco? 0 Information not available 05/21/2019 Sex: Unknown Functional Status Question Answer Note LastModified by Organizat ion Details LastModified Time What is your level of alcohol consumption? None Information not available 05/21/2019 Do you or have you ever used smokeless tobacco? Never used smokeless tobacco Information not available 05/21/2019 What is your occupation? teacher Information not available 05/21/2019 Do you or have you ever used e-cigarettes or vape? Never used electronic cigarettes Information not available 05/21/2019 What is your exercise level? Occasional Information not available 05/21/2019 Mental Status None recorded. Family History Relationship Description Onset Age of this Age Resolved Age Notes LastModified by Organization Details LastModified Time Mother Rheumatism [email or web address] Not availabl e 04/16/2019 15:30:36 Mother Congestive heart failure jolinger Not available 2019 09:41:10 Father Malignant tumor of pancreas jolinger Not available 2019 09:40:33 Paternal Uncle Malignant tumor of pancreas jolinger Not available 2019 09:40:33 Sister Malignant tumor of breast zander Not available 2019 09:40:49 Paternal Grandmother Malignant tumor of colon zander Not available 2019 09:41:02 Medical History Condition Response RHEUMATIC FEVER N STROKE N DIABETES N PROSTATE N RADIATION / CHEMOTHERAPY N EYE PROBLEMS N CAROTID BLOCKAGE N SEIZURES N BACK / NECK PROBLEMS N FEMALE PROBLEMS / INFECTIONS N DEPRESSION (INCLUDING POST ) N BOWEL PROBLEMS N HAVE YOU BEEN HOSPITALIZED OR SEEN IN [facility] IN THE PAST YEAR ? N THYROID DISEASE N ATHEROSCLEROSIS N ULCERS N BREAST PROBLEMS N DIALYSIS N HIV / AIDS N ADHD N ANEURYSM N OSTEOPOROSIS N URINARY/BLADDER/KIDNEY PROBLEMS N ARTHRITIS N HEADACHES N USE OF BLOOD THINNERS N SKIN PROBLEMS N HIGH CHOLESTEROL N HEARTBURN / REFLUX N BLOOD CLOTS N ASTHMA N HEPATITIS / LIVER DISEASE N PULMONARY DISEASE N GOUT N SLEEP DISORDER N HERPES N DEMENTIA N ALLERGIES N VASCULAR DISEASE N DIZZINESS N KIDNEY DISEASE N EAR PROBLEMS N LUNG DISORDER N HYPERTENSION N CARDIAC ARRHYTHMIA N CANCER: SPECIFY N ANXIETY DISORDER N ANEMIA/BLOOD DISORDER N PNEUMONIA N PULMONARY EMBOLISM N BRONCHITIS N HEART DISEASE N CORONARY ARTERY DISEASE N TUBERCULOSIS N Gynecological History Statement/Question Response Abnormal Pap N Date of Last Colonoscopy Most Recent Bone Density Sexually Active? Y Menses Monthly N STIs/STDs N Date of Last Pap Smear 09/10/2018 Most Recent Mammogram LMP Unknown Obstetrics History GPAL:G 4 P 4 0 0 4 Type Value Full Term 4 Living 4 Total 4 Past Encounters Encounter ID Performer Location Encounter Start Date Encounter Closed Date Diagnosis/Indication Diagnosis SNOMED-CT Code Diagnosis ICD10 Code Diagnosis Note [id number] MD Bridger Jeronimo__[facility] INCLUDES THE [facility] [address] [place] [address] 11/24/2009 16:12:38 11/24/2009 16:29:18 [id number] HAWK Palacios_[facility] [address] [place] [address] [address] [place] [address] 11/25/2009 13:06:23 11/25/2009 15:28:49 [id number] MD Bridger Jeronimo__[facility] [address] [place] [address] 12/14/2009 10:09:48 12/14/2009 13:29:16 [id number] MD MELANIE Moore [facility] [address] [facility] [place] [address] 01/22/2013 13:02:10 01/22/2013 13:37:45 [id number] Polo Crane DO [facility] [id number] [facility] [address] [address] 08/05/2014 11:18:22 08/07/2014 09:38:50 [id number] MD MELANIE Moore ON [facility] [address] [place] [address] [place] [address] 09/10/2018 15:37:36 09/10/2018 15:41:55 [id number] GR[place] DAVID ON [address] [place] [address] 04/16/2019 15:13:38 04/23/2019 16:17:13 Hypothyroidism 65927444 E03.9 Patient will return to have fasting labs. [id number] SURESH Gee ON [address] [place] [address] 04/30/2019 09:04:45 05/01/2019 09:57:29 Hypothyroidism 33805476 E03.9 Long-term drug therapy 865504739 Z79.899 [id number] GR[place] DAVID ON [address] [place] [address] 05/21/2019 08:56:41 05/28/2019 16:40:26 Increased frequency of urination 721056168 R35.[address] [facility] th examination 942165288 Z00.00 Advance care planning handouts given Depression screening 171 464238 Z13.31 negative Finding of body mass index 002904324 Z68.26 Screening for malignant neoplasm of breast 863246704 Z12.39 Pt reports last mammogram was early Fall 2018 at [facility]. She was educated about importance of annual screenings , especially with family hx of breast cancer, she agreed to complete annual screenings Screening for malignant neoplasm of cervix 791776875 Z12.4 Pt's last pap smear was on 09/10/[address] Mukherjee, pt was educated about importance of annual screenings , she agreed to complete annual screening exams Screening for malignant neoplasm of colon 472493756 Z12.11 Pt's last colonoscop y was in 2019 in [place], she was advised to follow up in 10 years Screening for cardiovascular system disease 678627373 Z13.6 Pt's last lipid panel was on 04/30/2019 Glaucoma screening 18456 5009 Z13.5 Pt reports last eye exam was approx 2 yrs ago, she was educated about importance of annual screenings , she agreed to self schedule appt once Covid-19 restrictio ns are lifted Screening for osteoporosis 082744491 Z13.820 Pt denies previous DEXA scan, we discussed the importance of screening, she would like to be scheduled once Covid-19 restrictio ns are lifted, she would like screening done at [facility] Diabetes m ellitus screening 264546579 Z13.1 Last hemoglobin A1C was on 04/30/2019 Hepatitis C screening 41 7661053 Z11.59 Pt denies previous screening, we discussed importance of screening, she agreed to be screened once Covid 19 restrictio ns are lifted Advance di rective discussed with patient 417314849 Z71.89 Pt states she has completed an advance directive document, she denies having it filed at local hospital or clinic, also denies that a family member has a copy of document. We discussed various scenarios and the extreme importance of having document filed at local hospital, here at the clinic as well as all locations where she does or may receive healthcare Dysuria 84847616 R30.9 [id number] Isidra Alba APRN [facility] [address] [address] 04/30/2020 15:45:21 05/04/2020 10:09:39 Health Concerns Section Related Observation LastModified by Organization Detai ls LastModified Time None Recorded Concern Status LastModified by Organization Details LastModified Time None Recorded Advance Directives Directive Y: Pt has living will but do es nto have on file Payers Insurance Date Sequence Insurance Name Policy Number Policy Jolly Covered Member ID Jolly Member ID Guarantor Name 08/04/2014 1 [employer]) [id number] Soto Bernard [id number] Flora Bernard 04/30/2020 [facility] [employer] [place] [id number] Kat Stephens Bernard 04/30/2020 1 [facility] [place] [id number] Soto Bernard [id number] Marco Antonio Notes Date Note Type Note Provider Name and Address Organization Details Recorded Time 0 text/html Patient is in the clinic today to establish care. She has no complaints or concerns at this time. Patient is being treated for Hypothyroidism. ISIDRA ROCKRODRIGO INS, [address], [address], [facility] 04/17/2019 16:00:18 0 text/html Annual Wellness Exam 18-64 yrReported bypatient.Nutrition3 meals/day; normal appetite; good eating habits/appetite Habitsbrushes teeth 2 times/day Exercisegets regular exercise; Pt reports she has been walking twice daily Risk Takingdenies drug use; denies alcohol use; denies tobacco use Moodhappy overall; denies suicidal ideations Safety Measureswears seatbelt Sleep(normal) sleepDysuriaReported bypatient.Quality:pressur e Severity:worsening; mild Duration:symptoms lasting over 2 weeks Timing:worse Context:history of urine cultures/antibiotic treatment Associated Symptoms:no fever; increased frequency and nocturia. pt also requesting to start vitamin d for low vitamin d levels. reviewed previous labs with patient. pt denies fever, cough and shortness of breath today. ISIDRA KAREN INS, [address], [address], [facility] 05/21/2019 13:35:44 OBGyn Episode No OBEpisode recorded.
--- OUTSIDE RECORDS SUMMARY | 2024-09-03 12:30 | XMS_ITS | Data Portability ---
Author Organization [facility] [place] [facility], [facility] Address [address] [place] [address] Care Team Providers Care Acoustic Sensor Operator Name Role Phone LEYDI MITCHELL Primary Care Provider Assessment Encounter Date Assessment Date Assessment LastModified by Organization Details LastModified Time 01/22/2013 01/22/2013 normal ALARM SIGNAL OPERATOR exam, patient is ot interested in hormone therapy nor in getting a recheck on her labs Not available 01/22/2013 15:38:34 09/10/2018 09/10/2018 she has moderate vulvar atrophic changes, she is not tender over her bladder. The atrophy is making her feel like she has to pee all the time. [email or web address] Not available 09/11/2018 09:37:11 Plan of Treatment Reminders Order Date Submit Date Provider Last Modified By Organization Details Last Modified Time Details Appointments None recorded. Lab Pap test, slide(s), cervical 2018 019 [email or web address] [facility] (Registration ), [address], [place], [address], 9 16:33:57 Pap smear in-house screen/col lection 2012 014 [email or web address] Not available 4 09:44:32 Referral None recorded. Procedures None recorded. Surgeries None recorded. Imaging mammogram, screening 2012 013 TWAN Not available 3 14:03:22 Medication Orders Premarin 0.625 mg/gram vaginal cream 2018 019 INTERFACE [facility], [address] [facility] [address], [place], [address], 9 16:32:54 Patient TargetsNo targets recorded. Patient Instructions Encounter Date Encounter Id Patient Instructions Last Modified By Organization Details Last Modified Time 01/22/2013 [id number] learning about breast cancer screening [email or web address] Not available 01/23/2013 09:31:15 pelvic exam: car e instructions [email or web address] Not available 01/23/2013 09:34:42 Reason for Referral None Reported. Results Created Date Observation Date Name Description Value Unit Range Abnormal Flag Note LastModifiedBy Organization Detail LastModifiedTime 02/08/20 13 01/22/2013 mammo gram, scree gabrielle No observ ation record ed. [email or web address] [facility] (Imaging) [address], [place], [address], 09/11/2018 09:33:48 Result Notes None recorded. Problems Name Problem SNOMED Code Status Onset Date Resolution Date Notes Provider Name and Address Organization Details Recorded Time Hypothyroidism 87379740 Active AJAY Mcnulty [facility] 3 15:39:35 Toenail thickened 435696413 Active Kia KAVEH DraperN margarito, [facility] 3 15:39:35 Problem Notes None recorded. Procedures Surgical History Date Name Laterality Status Provider Name and Address Organization Details Recorded Time 09/11/19 19 Date of Last Pap Smear completed Martita Mukherjee MD [address], [place], [address], [facility] 09/11/2018 09:27:55 01/23/20 13 Most Recent Mammogram completed Kia Draper LPN [facility] 01/22/2013 15:38:34 Tonsillectomy completed Kia Draper LPN [facility] 01/22/2013 15:38:34 Imaging Results None recorded. Procedure Notes None recorded. Medical Equipment None Reported. Allergies No known drug allergies Medications Name Sig Start Date Stop Date Status Note LastModified by Organization Details LastModified Time amoxicillin 500 mg capsule 09/11 completed Not Available Not Available Not Available cephalexin 500 mg capsule 09/11 completed Not Available Not Available Not Available levothyroxi ne 125 mcg tablet Take 1 tablet every day by oral route. active Not Available Not Available No t Available estradiol 0.01% (0.1 mg/gram) vaginal cream Insert 1 g every day by vaginal route at bedtime for 7 days. 2018 active Not Available Not Available Not Avai lable Vitamin D2 1,250 mcg (50,000 unit) capsule active Not Available Not Available Not Available levothyroxi ne 112 mcg tablet TAKE 1 TABLET BY MOUTH ONCE DAILY active Not Available Not Available No t Available Premarin 0.625 mg/gram vaginal cream Insert 0.5 applicato rsful every day by vaginal route for 7 days. 2018 active Not Available Not Available Not Avai lable nitrofurant oin monohydrate /macrocryst als 100 mg capsule TAKE 1 CAPSULE BY MOUTH EVERY 12 HOURS FOR 7 DAYS active Not Available Not Available No t Available Vitals Date Recorded Body height Body mass index (BMI) Body weight Heart rate Systolic And Diastolic Provider Name and Address Organization Details Last Updated DateTime 09/10/2018 172.72 cm 27.7 kg/m2 71409.81 g 84 /min 122/70 mm[Hg] Martita Mukherjee MD [address], [place], [address] , [facility] 09/11/2018 09:33:35 Date Recorded Body height Body weight Body mass index (BMI) Heart rate Systolic And Diastolic Provider Name and Address Organization Details Last Updated DateTime 01/22/2013 172.72 cm 52406.29 527 g 26 kg/m2 88 /min 118/70 mm[Hg] Kia Draper LPN [facility] 01/22/2013 15:38:34 Social History Question Answer Notes LastModified by Organizat ion Details LastModified Time Tobacco Smoking Status Never Smoker Kia Draper LPN [facility], [facility] 01/22/2013 15:38:35 Do You Have An Advance Directive? No [email or web address] Information not available 09/11/2018 What Is Your Level Of Caffeine Consumption? None [email or web address] Information not available 09/11/2018 How Much Tobacco Do You Chew? None [email or web address] Information not available 09/11/2018 What Type Of Diet Are You Following? REGULAR [email or web address] Information not available 09/11/2018 Which Illicit Or Recreational Drugs Have You Used? Denies Information not available 01/22/2013 Have You Directly Handled Bats, Rodents, Or Primates From Ebola Endemic Areas? No [email or web address] Information not available 09/11/2018 Have You Had Contact With Blood, Bodily Fluids, Or Human Remains Of A Patient Known To Have Or Suspected To Have Ebola Virus Disease? No Information not available 09/11/2018 Do You Reside In Or Have You Traveled To An Area Where Ebola Virus Transmission Is Active? No [email or web address] Information not available 09/11/2018 Education Post Graduate [email or web address] Information not available 09/11/2018 Are There Any Guns Present In Your Home? No Information not available 09/11/2018 Marital Status Informatio n not available 01/22/2013 What Was The Date Of Your Most Recent Tobacco Screening? 09/10/2018 [email or web address] Information not available 09/11/2018 Seat Belts Used Routinely Yes [email or web address] Information not available 09/11/2018 Smoke Alarm In Home Yes Information not available 09/11/2018 How Much Tobacco Do You Smoke? No [email or web address] Information not available 09/11/2018 General Stress Level Medium [email or web address] Information not available 09/11/2018 Do You Use Sunscreen Routinely? Yes [email or web address] Information not available 09/11/2018 Sex: Unknown Functional Status Question Answer Note LastModified by Organizat ion Details LastModified Time What is your level of alcohol consumption? None Information not available 01/22/2013 Do you or have you ever used smokeless tobacco? 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 Never used electronic cigarettes [email or web address] Information not available 09/11/2018 What is your exercise level? Occasional [email or web address] Information not available 09/11/2018 Mental Status None recorded. Family History Relationship Description Onset Age of this Age Resolved Age Notes LastModified by Organization Details LastModified Time Mother Congestive heart failure Not available 2012 15:38:34 Mother Hypothyroidi sm Not available 2012 15:38:34 Mother Rheumatoid arthritis deceas ed Not available 01/22/2013 15:38:34 Father Malignant tumor of tail of pancreas deceas ed Not available 01/22/2013 15:38:34 Medical History Condition Response THYROID DISEASE Y Gynecological History Statement/Question Response If Post Menopausal, Age at Menopause 51 Abnormal Pap N Sexually Active? Y Menses Monthly N STIs/STDs N Date of Last Pap Smear 09/10/2018 Current Control Method Menopause Most Recent Mammogram 01/22/2013 LMP Unknown Obstetrics History GPAL:G 7 P 4 0 3 4 Type Value Full Term 4 Spontaneous 3 Living 4 Total 7 Past Encounters Encounter ID Performer Location Encounter Start Date Encounter Closed Date Diagnosis/Indication Diagnosis SNOMED-CT Code Diagnosis ICD10 Code Diagnosis Note [id number] Jesusita Shi MD [facility]__[facility] [address] [place] [address] 11/24/2009 16:12:38 11/24/2009 16:29:18 [id number] HAWK Palacios_JFAC_[facility] [address] [place] [address] [address] [place] [address] 11/25/2009 13:06:23 11/25/2009 15:28:49 [id number] Jesusita Shi MD Z_[facility] [address] [place] [address] 12/14/2009 10:09:48 12/14/2009 13:29:16 [id number] Martita Mukherjee MD [facility] [address] [place] [address] 01/22/2013 13:02:10 01/22/2013 13:37:45 Screening mammography [id number] Gynecologi c examination [id number] Polo Crane DO [facility] [address] [facility] [address] [place] [address] 08/05/2014 11:18:22 08/07/2014 09:38:50 [id number] MD BIANCA Moore_SHENA ON [facility] [address] [facility] [place] [address] 09/10/2018 15:37:36 09/10/2018 15:41:55 Atrophic vulva 319725399 N90.5 Screening for malignant neoplasm of cervix 461472734 Z12.4 [id number] GRACE DAVID ON [facility] [address] [place] [address] 04/16/2019 15:13:38 04/23/2019 16:17:13 [id number] SURESH Gee ON [address] [place] [address] 04/30/2019 09:04:45 05/01/2019 09:57:29 [id number] GRACE DAVID ON [address] [place] [address] 05/21/2019 08:56:41 05/28/2019 16:40:26 [id number] Katarzyna Alba APRN [facility] [address] [facility] [place] [address] 04/30/2020 15:45:21 05/04/2020 10:09:39 Health Concerns Section Related Observation LastModified by Organization Detai ls LastModified Time None Recorded Concern Status LastModified by Organization Details LastModified Time None Recorded Advance Directives Directive N: Payers Insurance Date Sequence Insurance Name Policy Number Policy Jolly Covered Member ID Jolly Member ID Guarantor Name 08/04/2014 1 [employer] ([employer]) [id number] Soto Bernard [id number] Flora Bernard 04/30/2020 [facility] [employer] [place] [id number] Kat Bernard 04/30/2020 1 [place] [id number] Soto Bernard [id number] [place] Notes Date Note Type Note Provider Name and Address Organization Details Recorded Time 09/10/2018 text/html Care Management - GeneralReported bypatient.Prognosis:e xpected outcome: improve; prognosis: good Context:not current smoker; BMI Classification: Overweight; weight staying the same Lifestyle Changes:motivated to continue lifestyle changes; exercises regularly Medication Therapy:compliant with follow-up visits; compliance with oral medication is good; understands effect of concurrent medications; understands potential side effects; understands missed doses Nutrition/Dietary Compliance:eats mostly healthy diet; sufficient intake of fruits/vegetables; understands role of diet as primary therapy; hypoglycemic awarenessVaginal/Vulv ar ProblemReported bypatient.Location:vu lva Onset/Timing:present most months Duration:present for >1 month; persistent; wax/wanes Quality:itching; burning; irritation; dry; generalized Severity:severe; worsening Context:sexually active; condom use: no; postmenopausal; history of vaginal atrophy; recent antibiotic use Alleviating Factors:none Aggravating Factors:intercourse; burning with urination Associated Symptoms:no vaginal itching; no vaginal irritation; no vaginal pain; no vulvar pain; no vulvar lesions; no pelvic pain; no dyspareunia; no fever; no abdominal pain;vulvar swelling/erythema;dys uria Martita Mukherjee MD [address] [place], [address], [facility] [place] [facility] 09/11/2018 09:38:38 OBGyn Episode No OBEpisode recorded.
--- OUTSIDE RECORDS SUMMARY | 2024-09-03 12:30 | XMS_ITS | Encounter Summary ---
Author Organization Healthcare Address [address] [place] [address] Care Team Providers Care Finance Mgr Name Role Phone Jasbir Bennett DMD Unavailable [phone] Esha De Souza Unavailable Unavailable Pcp, No Primary Care Provider Unavailabl e Encounter Details Date Type Department Care Team ([facility] st Contact Info) Description 11/15/2019 [facility] [address] [place] [address] Dental, Provider, DDS [facility] [place] [id number] Social History Tobacco Use Types Packs/Day Years Used Date Smoking Tobacco: Never Assessed Comments Unknown Sex and Gender Information Value Date Recorded Sex Assigned at Not on file Legal Sex Female 8:09 PM EDT Gender Identity Not on file Sexual Orientation Not on file documented as of this encounter Plan of Treatment Not on file documented as of this encounter Visit Diagnoses Not on filedocumented in this encounter Care Teams Finance Mgr Relationship Specialty Start Date End Date Pcp, No [address] [place] [address] PCP - General Family Medicine 09/13/23 Jasbir Bennett, DMD [address] [facility], D202 [address] [place] [address] Dentist Dental Barrel Rifler Broach 07/22/20 2 Esha De Sou[employer] Dental Student Dental Barrel Rifler Broach 07/22/20 07/21/21 documented as of this encounter
--- OUTSIDE RECORDS SUMMARY | 2024-09-03 12:30 | XMS_ITS | Clinical Summary ---
Author Organization Healthcare Address [address] [place] [address] Care Team Providers Care Folder Machine Operator Name Role Phone Pcp, No Primary Care Provider Unavailabl e Allergies No known active allergies Medications levothyroxine (Synthroid, Levoxyl) 112 MCG tablet 1 tablet (112 mcg). 07/02/2023 Active Social History Tobacco Use Types Packs/Day Years Used Date Smoking Tobacco: Never Assessed PHQ-2 Answer Date Recorded Patient Health Questionnaire-2 Score 0 09/13/2023 Comments Unknown Sex and Gender Information Value Date Recorded Sex Assigned at Not on file Legal Sex Female 8:09 PM EDT Gender Identity Not on file Sexual Orientation Not on file Last Filed Vital Signs Vital Sign Reading Time Taken Comments Blood Pressure 168/70 09/13/2023 9:20 AM EDT Pulse - - Temperature - - Respiratory Rate - - Oxygen Saturation - - Inhaled Oxygen Concentration - - Weight 65.8 kg (145 lb) 09/13/2023 9:20 AM EDT Height 170.2 cm (5' 7 ) 09/13/2023 9:20 AM EDT Body Mass Index 22.71 09/13/2023 9:20 AM EDT Plan of Treatment Health Maintenance Due Date Last Done Comments [facility]-HIV Screening 1960 [facility]-Hepatitis C Screening 1960 [facility]-/Child/Adol SDOH Screenings 1960 QLM-QDAII-50 Vaccine (#1) 1965 [facility]- SDOH Screenings 1978 [facility]-Adult SDOH Screenings 1978 [facility]-DTaP,Tdap,and Td Vaccine s (1 - Tdap) 12/09/1979 [facility]-Pap Smear 1981 [facility]-Cervical Cancer Screening 1990 [facility]-HPV/Cotest 1990 CT Colonography 2005 Colonoscopy 2005 FIT-DNA 2005 FIT 2005 FOBT 2005 Sigmoidoscopy 2005 [facility]-Colorectal Cancer Screening 2005 [facility]-Breast Cancer Screening 2010 [facility]-Pneumococcal Vaccine: 50 + Years (1 of 1 - PCV) 2010 [facility]-Zoster Vaccines (1 of 2) 2010 [facility]-RSV Vaccine: 60+ Years o r (1 - Risk 60-74 years 1-dose series) 2020 [facility]-Depression Screening 09/12/2024 09/13/2023 [facility]-Influenza Vaccine (#1) 2024 HPV Vaccines Aged Out No longer eligi ble based on patient's age to complete this topic [facility]-HIB Vaccines Aged Out No longer e ligible based on patient's age to complete this topic [facility]-Hepatitis A Vaccines Aged Out No longer eligible based on patient's age to complete this topic [facility]-IPV Vaccines Aged Out No longer e ligible based on patient's age to complete this topic [facility]-Rotavirus Vaccines Aged Out No lo nger eligible based on patient's age to complete this topic Insurance [facility] Care Teams Folder Machine Operator Relationship Specialty Start Date [place] [address] PCP - General Family Medicine 09/13/23
[2024-09-04 05:21] LABS: Hepatitis B Surface Antigen Negative (Negative)
== END 2024-09-02 23:59 | disposition home or self-care (01) ==
LOC: LAB.DROPOF 09-03 12:27
PROVIDERS: PCP Family Medicine; Visit Provider Family Medicine
DX: E03.9 Hypothyroidism, unspecified (principal); Z11.59 Encounter for screening for other viral diseases; Z11.4 Encounter for screening for human immunodeficiency virus [HIV]
CPT/HCPCS: 80074; 84443; 87340; 87389